=== PATIENT | female | born 1950 | race Caucasian/White ===

== ENCOUNTER 2016-08-22 07:18 | Inpatient (IN) | payer BC ==
[2016-08-17 12:03] LABS: BASOPHILS 0.3 %; BASOPHILS ABSOLUTE 0.03 10/3/uL (0.0-0.16); EOSINOPHILS 4.4 %; HEMATOCRIT 42.5 % (36.0-48.0); IMMATURE GRANULOCYTES 0.8 %; IMMATURE GRANULOCYTES ABSOLUTE 0.07 10/3/uL (0.0-0.11); LYMPHOCYTES 23.3 %; LYMPHOCYTES ABSOLUTE 2.11 10/3/uL (0.67-4.30); MEAN CORPUS HGB CONC 32.9 g/dL (32.0-36.0); MEAN CORPUSCULAR HEMOGLOB 28.6 pg (26.0-34.0); MEAN CORPUSCULAR VOLUME 86.7 fL (80-100); MEAN PLATELET VOLUME 8.8 fL (9.2-13.0); MONOCYTES 6.8 %; MONOCYTES ABSOLUTE 0.62 10/3/uL (0.21-1.20); NEUTROPHILS 64.4 %; NEUTROPHILS ABSOLUTE 5.84 10/3/uL (2.02-8.40); PLATELET COUNT 212 10/3/uL (150-400); RBC DISTRIBUTION WIDTH 16.6 % (12.0-16.0); WHITE BLOOD CELLS 9.1 10/3/uL (4.5-10.5)
[2016-08-17 12:09] LABS: MANUAL DIFF NO %
[2016-08-17 12:10] LABS: PROTIME (NOT ORD) 13.1 SEC (12.0-14.5)
[2016-08-17 12:19] LABS: A/G RATIO 0.8 (0.7-1.9); ALBUMIN 3.4 G/DL (3.5-5.0); ALKALINE PHOSPHATASE 68 U/L (45-117); BUN (BLOOD UREA NITROGEN) 10 MG/DL (6-23); CALCIUM, SERUM 8.8 MG/DL (8.5-10.4); CHLORIDE, SERUM 104 MMOL/L (96-112); CO2 (CARBON DIOXIDE) 30 MMOL/L (24-34); CREATININE 1.32 MG/DL (0.55-1.02); GFR AFRICAN AMERICAN 48 ML/MIN (>=60); GFR NON AFRICAN AMERICAN 41 ML/MIN (>=60); GLOBULIN 4.4 G/DL (2.5-4.1); GLUCOSE, SERUM 136 MG/DL (60-99); POTASSIUM, SERUM 4.4 MMOL/L (3.5-5.3); SGOT(AST) 16 U/L (5-40); SGPT(ALT) 26 U/L (5-65); SODIUM, SERUM 139 MMOL/L (135-148); TOTAL BILIRUBIN 0.3 MG/DL (0-1.2); TOTAL PROTEIN 7.8 G/DL (6.0-8.5)
[2016-08-17 12:46] LABS: WBC (NOT ORDERED) (RFLEX) 0 (0-5)
[2016-08-17 13:53] LABS: ASCORBIC ACID (UR NOT ORDER) NEG (NEG); BILIRUBIN, URINE NEGATIVE (NEG); KETONE, URINE NEGATIVE (NEG); LEUKOCYTE ESTERASE(NOT OR NEG (NEG)
--- NOTE | ~2016-08-22 | OP ---
Record Of Operation [address] [place]. [address] NAME: ANJELICA RAMOS : 48 STATUS : ADM IN PAT#: [id number] AGE: 66 ADM/REG DATE : 08/22/16 MR#: [id number] REPORT SERV DATE: 08/23/16 DICTATED BY: OH PALOMO DATE: 08/22/16 REPORT STATUS : Draft TRANSCRIBED BY: MODL DATE: 08/22/16 DATE OF PROCEDURE: 08/22/2016 PREOPERATIVE DIAGNOSES: 1. Left upper lobe mass. 2. Acute blood loss anemia with transfusion. 3. History of coronary artery disease, status post previous recent PTCA and stenting of the coronary artery. 4. Chronic obstructive pulmonary disease. 5. Chronic kidney disease, stage III. 6. Type 2 htc-ifpicep-pxeytpcqv diabetes mellitus. 7. Hypertension. 8. Gastroesophageal reflux disease. 9. Tobacco abuse. POSTOPERATIVE DIAGNOSES: 1. Left upper lobe mass. 2. Acute blood loss anemia with transfusion. 3. History of coronary artery disease, status post previous recent PTCA and stenting of the coronary artery. 4. Chronic obstructive pulmonary disease. 5. Chronic kidney disease, stage III. 6. Type 2 frs-hwtrqht-aqlrapoge diabetes mellitus. 7. Hypertension. 8. Gastroesophageal reflux disease. 9. Tobacco abuse. 10.Non-small cell lung cancer of the left upper lobe. PROCEDURES PERFORMED: 1. Left thoracotomy with left upper lobectomy. 2. Mediastinal lymph node dissection. 3. Attempted left thoracoscopy. SURGEON: Oh Palomo M.D. ASSISTANTS: Lynn Canales and Manish Castellanos. ANESTHESIA: General. LEAD CARGO MOVER: Dr. Neil. PRIMARY CARE: Dr. Diogo Dent. INDICATIONS: This is a 66-year-old female with a long history of smoking. She has diabetes and is actively smoking. She has also had a possible history of previous [place]. In December she developed cough and went to her primary care physician. She was initially treated with Record Of Operation [address] [place]. [address] NAME: ANJELICA RAMOS : 48 STATUS : ADM IN PAT#: [id number] AGE: 66 ADM/REG DATE : 08/22/16 MR#: [id number] REPORT SERV DATE: 08/23/16 DICTATED BY: OH PALOMO DATE: 08/22/16 REPORT STATUS : Draft TRANSCRIBED BY: MODL DATE: 08/22/16 antibiotics for pneumonia that did not clear. She underwent a CT scan that demonstrated a possible mass in the left upper lobe of the lung. She was referred to Dr. Felix Neil who performed bronchoscopy and a needle biopsy of the left upper lobe that was nondiagnostic. PET scan did not demonstrate any evidence of regional or metastatic spread. In addition, the PET scan did not show significant increase in the uptake in the left upper lobe lung lesion. There was an area on the palatine tonsil and breast seen but not in the mass in the left upper lobe. We were asked to see the patient for evaluation for a left upper lobe lung mass that appeared to be persistent at 3 months. The patient has a long history of smoking and reportedly has quit smoking recently. We saw the patient in our office. We talked about possible resection. She did favor surgical resection. She does have shortness of breath with exertion. Her pulmonary function studies demonstrated FEV1 was 65% of predicted with a DLCO that was low normal. We discussed regional operation with the patient and her . Because of her dyspnea and my concern about chest discomfort, we had requested a stress test. This was performed, I believe, at [place] then back in April. I did not demonstrate any evidence of myocardial perfusion alteration. However because of the patient's consistent and repeated history of chest pain with exertion, I referred it back to her primary computer information systems instructor up in [place], Dr. Mcdowell. There she underwent a cardiac catheterization that demonstrated an 85% to 90% stenosis of the right coronary artery. She had a bare metal stent placed in this. The patient has been on Plavix for 1 month and cleared for surgery. We re-discussed operation with she and her and they wished to proceed. FINDINGS AT OPERATION: 1. There were calcified mediastinal lymph nodes with attachment to pulmonary arteries. This tried to negotiate the lingular artery dissection around one of these lymph nodes, unfortunately resulted in a tearing of the lingular branch of the pulmonary artery to the left upper lobe. This necessitated an urgent conversion to an open thoracotomy for control of the blood vessels and repair of this vessel. 2. The patient did receive 2 units of packed cells during this operation. 3. The tumor was in the posterior segment of the left upper lobe near the fissure between the upper and lower lobes. In fact, I was concerned that there may be some encroachment across the fissure into the left lower lobe. The small portion of the superior segment of the left lower lobe was taken en bloc with the upper lobe and sent for pathologic examination. This returned negative for malignancy in the resected portion of the left lower lobe. 4. The bronchial margin was negative for malignancy. 5. The frozen section of the mass itself demonstrated to be an adenocarcinoma. Chest tubes were placed. The pathologic specimen includes left upper lobe with frozen section as above. 6. Mediastinal lymph nodes, levels 5, 6, 7, 9, 10, and 11. DESCRIPTION OF PROCEDURE: The patient was brought to the operating suite where general anesthesia was induced. Airway was secured with a dual lumen endotracheal tube. Lines secured by Anesthesia. The patient was rolled in a right lateral decubitus position. Left chest prepped with Hibiclens and ChloraPrep and draped with Ioban and sterile sheets. The left lung was deflated by Anesthesia. Record Of Operation [facility] [address] [facility] [place]. [address] NAME: ANJELICA RAMOS : 48 STATUS : ADM IN PAT#: [id number] AGE: 66 ADM/REG DATE : 08/22/16 MR#: [id number] REPORT SERV DATE: 08/23/16 DICTATED BY: OH PALOMO DATE: 08/22/16 REPORT STATUS : Draft TRANSCRIBED BY: MODPetar DATE: 08/22/16 A single 3 to 4 cm VATS incision made along the posterior axillary line and carried through the subcutaneous tissue. The chest wall musculature was incised and divided and the intercostal muscle divided. We entered the chest bluntly and a protractor soft tissue retractor was placed. A second 1 to 2 cm incision made along the anterior axillary line and one intercostal space above this previous incision and we entered the chest bluntly through this site under thoracoscopic visualization. A soft tissue retractor was placed through the largest of the VATS incision. We started the operation with these 2 thoracoscopic port sites. Examination demonstrated no evidence of pleural effusion. There were some adhesions of the left upper lobe to the chest wall while they were taken down. I was not concerned with the chest wall invasion. The fissure between the upper and lower lobe was then completed and we took sometime using cautery to complete the fissure as best as possible. We were able to identify the pulmonary artery branch coursing through the fissure to the basilar segments of the lower lobe. We identified the lingular artery branches to the upper lobe. Attempted circumferential dissection around this area demonstrated enlarged calcified lymph nodes, and I was concerned about the rupture of this vessel and we therefore stopped. We were able to obtain adequate exposure for completing the fissure between the lingula and the left lower lobe up to the point of the pulmonary artery. The lung was then retracted posteriorly and the anterior portion of the hilum was dissected. We identified the superior pulmonary vein and the lingular branch to the vein. Then circumferential dissection around the pulmonary vein was carried out. We ligated and divided this structure using a thoracoscopic stapler and 45 mm vascular staple load. The lung was then retracted inferiorly and the anterior superior portion of the hilum dissected. We identified the phrenic nerve and care was taken to avoid this. Several level 5 lymph nodes were removed and sent for pathologic examination. One of the apical branch of the pulmonary artery did stand out as being free of adhesions and this was circumferentially dissected. It was then ligated and divided with thoracoscopic stapler and the vascular staple load. We then had adequate angles for further dissection around the lingular branch of the pulmonary artery, the upper lobe. We were able to dissect around this vessel and then a vascular staple load was placed across the vessel. During firing of the stapler, we did notice tearing of the branch from the main pulmonary artery. There was a fair amount of blood loss at this point, and control was obtained using 2 grasping atraumatic clamps. Because of the bleeding, I decided to go ahead and elect to perform a thoracotomy. Posterior lateral thoracotomy incision was made and carried through subcutaneous tissue. The latissimus muscle was divided and the serratus muscle was along this fascia and preserved. We entered the chest through the 5th intercostal space and a retractor was placed. We then retracted the lung inferiorly and the superior aspect of the hilum was dissected. We obtained circumferential dissection around the main pulmonary artery and a vascular clamp placed across this structure. Then with blood vessel control, we were able to clear the chest of clot. The patient did receive 2 units of packed red blood cells and had a small drop in blood pressure down to 70 to 90 mmHg that easily rebound with fluid and blood. Record Of Operation [facility] [address] [place]. [address] NAME: ANJELICA RAMOS : 48 STATUS : ADM IN PAT#: [id number] AGE: 66 ADM/REG DATE : 08/22/16 MR#: [id number] REPORT SERV DATE: 08/23/16 DICTATED BY: OH PALOMO DATE: 08/22/16 REPORT STATUS : Draft TRANSCRIBED BY: ALMA DATE: 08/22/16 We continued our dissection and divided the branch of the pulmonary artery going to the posterior segment of the left upper lobe and completed this dividing the pulmonary artery branches to the lingula. Once this was completed, we were able to see where was the tear in the base of the lingular vessel from the main pulmonary trunk was injured. We then repaired this site with interrupted horizontal mattress sutures of 5-0 Prolene. Once this was completed, the atraumatic vascular clamp on the proximal main pulmonary artery was released. There was some bleeding from the base of the posterior segmental artery of the left upper lobe remnant. This was likewise repaired with horizontal mattress sutures of 5-0 Prolene. Hemostasis was obtained. Then irrigated the chest with sterile water and saline. Then, the bronchial stapler was placed across the proximal portion of the left upper lobe bronchus. Test occlusion and ventilation demonstrated good aeration of the left lower lobe. The bronchial stapler was fired and the bronchus divided. Finally the tumor appeared to be cross the fissure between the upper and lower lobes at the superior segment portion of the left lower lobe. Then, using multiple firings of the 60 mm black staple load, we were able to divide this fissure posteriorly taking a small portion of the superior segment of the left lower lobe with the left upper lobe. The mass in the left upper lobe was then brought out of the chest and sent for pathologic examination of the bronchial margin, the stapled margin into the superior segment of the left lower lobe and a frozen section of this mass itself. Frozen section of the mass returned positive for non-small cell lung cancer. The bronchial margin was negative and the stapled margin was likewise negative. Lymph node dissection was then carried out. The left lung was retracted anteriorly and the subcarinal region dissected and level 7 lymph nodes removed and sent for pathologic examination. Along the curvature of the aorta, 2 mediastinal level 6 lymph nodes were removed and sent for pathologic examination. The anterior level 5 lymph nodes have already been removed. The inferior pulmonary ligament was divided up the inferior pulmonary vein and the level 9 lymph nodes were removed and sent for pathologic examination. It should be noted that during dissection, several level 10 and 11 lymph nodes were removed and sent for permanent section. Once the lymph node dissection was completed, the chest was irrigated and hemostasis was obtained. Intercostal nerve block and field block performed under direct visualization using the TAP solution. Then, a chest tube was placed through the most anterior thoracoscopic port site and secured to the skin. The intercostal space was reapproximated with 3 Vicryl sutures. The serratus fascia and latissimus muscle were reapproximated with #1 StrataFix. The subcutaneous tissue was closed with 2-0 StrataFix and skin closed in subcuticular fashion. The Protractor soft tissue retractor was then removed and this incision was closed in layers with absorbable suture and the skin closed in a subcuticular fashion. The patient did tolerate the procedure well. The complications include emergent conversion to left thoracotomy with acute blood loss anemia and transfusion of 2 packed units of blood cells. Record Of Operation [address] [address] NAME: ANJELICA RAMOS : 46 STATUS : ADM IN [facility]#: [id number] AGE: 66 ADM/REG DATE : 08/22/16 MR#: [id number] REPORT SERV DATE: 08/23/16 DICTATED BY: OH PALOMO DATE: 08/22/16 REPORT STATUS : Draft TRANSCRIBED BY: ALMA DATE: 08/22/16 DISPOSITION: The patient was extubated and taken to the recovery room in stable, extubated condition. MARIAH/ALMA Oh Palomo M.D. / [id number] CC: Suleman Tello M.D. Mircea Basaraba, MD
--- NOTE | ~2016-08-22 | CN ---
Consultation Report [facility] [address] [place]. [address] NAME: ANJELICA RAMOS : 46 STATUS : ADM IN PAT#: [id number] AGE: 66 ADM/REG DATE : 08/22/16 MR#: [id number] REPORT SERV DATE: 08/23/16 DICTATED BY: RAFFI WHITEHEAD DATE: 08/23/16 REPORT STATUS : Draft TRANSCRIBED BY: MODPetar DATE: 08/23/16 NEPHROLOGY CONSULTATION DATE OF CONSULTATION: 08/23/2016 CHIEF COMPLAINT: Acute kidney insufficiency. HISTORY OF PRESENT ILLNESS: The patient is a 66-year-old white female with significant past medical history of stage 3 CKD (creatinine 1.15 to 1.35), dft-ukprcso-mpgncawzi diabetes (hemoglobin A1c 5.7), hypertension, ASCVD, status post bare metal stent to RCA, presented for a scheduled procedure for evaluation and management of left upper lobe mass. On 08/22/2016, she underwent a left thoracotomy with left upper lobe lobectomy and mediastinal lymph node dissection. The patient was noted to have systolic blood pressures in 80s to 100s and in addition she had decreasing urine output with the urine output going to less than 20 mL an hour. She did receive Bumex 1 mg IV x1 approximately 12 and responded appropriately. Urine output has been approximately 40 mL an hour over the last three to four hours with the patient on normal saline at 30 mL an hour. Baseline creatinine on presentation on 08/17/2016 and 08/22/2016 was 1.31 to 1.32. Her creatinine is noted to be 1.89 today. Her urinalysis on 08/17/2016 did not show any evidence of microscopic hematuria or proteinuria. I do not have any imaging studies of her kidneys at this time, but the patient notes that she has had CT scans recently in the workup of her left upper lobe mass. She has had a stress test in 04/2016, which was negative. She had a cardiac cath in 06/2016, which showed ejection fraction of 55% and RCA stenosis of 80%, status post bare metal stent. She denies any kidney stones. No NSAID abuse. PAST MEDICAL HISTORY/PAST SURGICAL HISTORY: 1. Left upper lobe mass with nondiagnostic biopsy in the past with 1.5 cm breast nodule. 2. Stage 3 CKD with a creatinine 1.15 to 1.35. 3. COPD. 4. Hiu-smhnbfe-fjagzujjl diabetes. 5. Hypertension. 6. Mixed hyperlipidemia. 7. Acute [place], ASCVD, status post stent to RCA in 06/2016. 8. GERD. 9. Vitamin D deficiency. SOCIAL HISTORY: She is . Remote tobacco. FAMILY MEDICAL HISTORY: No known kidney disease. ALLERGIES: CODEINE. Consultation Report [address] [place]. [address] NAME: ANJELICA RAMOS : 46 STATUS : ADM IN [facility]#: [id number] AGE: 66 ADM/REG DATE : 08/22/16 MR#: [id number] REPORT SERV DATE: 08/23/16 DICTATED BY: RAFFI WHITEHEAD DATE: 08/23/16 REPORT STATUS : Draft TRANSCRIBED BY: ALMA DATE: 08/23/16 CURRENT MEDICATIONS: Include Lopressor and Bumex. REVIEW OF SYSTEMS: Complete review of systems done, negative otherwise as stated in the HPI. PHYSICAL EXAMINATION: VITAL SIGNS: Temperature is 98.1, pulse is 99, blood pressure is in 80s to 100s over 50s. GENERAL: She is obese, in no apparent distress. NEUROLOGIC: She is alert and oriented x3. She moves all four extremities. SKIN: No petechiae or purpura. NECK: No JVP. Trachea midline. No lymphadenopathy. CARDIOVASCULAR: Regular rate and rhythm. RESPIRATORY: Coarse breath sounds. No increased respiratory rate. Left-sided chest tube. ABDOMEN: Soft, nontender, nondistended. Positive bowel sounds. EXTREMITIES: No peripheral edema. LABORATORY DATA: Sodium is 139, potassium 5.2, chloride is 106, bicarb 24, BUN 20, creatinine 1.89, glucose is 191. Albumin 3.4. Magnesium is 1.6. Calcium 7.2. White blood cell count 19.4, hemoglobin is 10.6. ASSESSMENT: 1. Acute kidney insufficiency on stage 3 chronic kidney disease (creatinine 1.15 to 1.35) secondary to prerenal disease versus acute tubular necrosis, status post left upper lobe lobectomy. 2. Postop day #0 for left upper lobe lobectomy secondary to mass. 3. Anemia. 4. Tma-xfqbmfs-tbajjqbwn diabetes. 5. Resolved hypertension with a history of hypertension. PLAN: Discontinue Samuels. Strict I's and O's. A.m. labs. Hold SCHUYLER inhibitor at this time until creatinine trends down. We will make further recommendations based on initial workup. SHEKHAR/ALMA Raffi Whitehead M.D. / [id number] CC: Nguyễn Palomo M.D. UNKNOWN
--- NOTE | ~2016-08-22 | DS ---
Discharge Summary [address] [place]. [address] NAME: ANJELICA RAMOS : 46 STATUS : DIS IN PAT#: [id number] AGE: 66 ADM/REG DATE : 08/22/16 MR#: [id number] REPORT SERV DATE: 09/09/16 DICTATED BY: OH PALOMO DATE: 09/08/16 REPORT STATUS : Draft TRANSCRIBED BY: ALMA DATE: 09/08/16 Data Collection from hospitalization DISCHARGE DIAGNOSES: 1. Left upper lobe mass. 2. Acute blood loss anemia with transfusion. 3. History of coronary artery disease, status post previous recent percutaneous transluminal coronary angioplasty and stenting of the coronary artery. 4. Chronic obstructive pulmonary disease. 5. Stage III chronic kidney disease. 6. Type 2 noninsulin dependent diabetes mellitus. 7. Hypertension. 8. Gastroesophageal reflux disease. 9. Tobacco abuse. 10.Non-small cell lung cancer of the left upper lobe. CONSULTATIONS: Raffi Whitehead M.D. PROCEDURES PERFORMED: Left thoracotomy with left upper lobectomy, mediastinal lymph node dissection, attempted left thoracoscopy on 08/22/2016. PATHOLOGY: Lymph nodes #11 dissection - 3 of 3 fragments positive for adenocarcinoma (3/3). Lymph nodes level 10 dissection - 2 of 2 fragments negative for adenocarcinoma (0/2). Histoplasmosis granuloma with calcification, lung left upper lobe and superior segment left lower lobe lobectomy - invasive adenocarcinoma, 1 of 2 nodes positive for tumor. Lymph nodes region #5 dissection - 1 of 2 fragments positive for adenocarcinoma (1/2). Lymph node #6 biopsy - 1 of 1 fragment negative for adenocarcinoma (0/1). Histoplasmosis granuloma with calcification. Lymph nodes #7 dissection- 15 of 15 fragments negative for adenocarcinoma (0/15). Lymph node #9 biopsy - 1 of 1 fragment negative for adenocarcinoma (0/1). MEDICATIONS: Ventolin two puffs via inhaler every four hours as needed, vitamin C 1000 mg daily, Plavix 75 mg daily, Pristiq 50 mg daily, Advair Diskus one puff via inhaler twice a day, [place] 10/325 one tablet every four hours as needed, Tradjenta 5 mg daily, Zestril 10 mg daily, Glucophage 1000 mg before breakfast, Lopressor 25 mg twice a day, Prilosec 40 mg daily, Zocor 40 mg at bedtime, and Spiriva one puff via inhaler daily. CONDITION AT DISCHARGE: Stable. DISPOSITION: The patient was discharged home to be followed by home health care on a 1500- calorie diabetic diet with activities as instructed. She would follow up with Lencho Whiteside on 08/31/2016 and 09/05/2016. HOSPITAL COURSE: This is a 66-year-old female who has a long history of smoking. She has diabetes and is actively smoking. She has also had a possible history of previous myocardial infarction. In December, she developed a cough and went to see her primary care physician. She was initially treated with antibiotics for pneumonia that did not clear. She underwent a CT scan that demonstrated possible mass in the left upper lobe of the lung. Discharge Summary [address] [place]. [address] NAME: ANJELICA RAMOS : 46 STATUS : DIS IN PAT#: [id number] AGE: 66 ADM/REG DATE : 08/22/16 MR#: [id number] REPORT SERV DATE: 09/09/16 DICTATED BY: OH PALOMO DATE: 09/08/16 REPORT STATUS : Draft TRANSCRIBED BY: ALMA DATE: 09/08/16 She had undergone a bronchoscopy and needle biopsy of the left upper lobe that was nondiagnostic. A PET scan did not demonstrate any evidence of regional or metastatic spread. In addition, the PET scan did not show any significant increase in the uptake in the left upper lobe lung lesion. There was an area on the palatine tonsil and breast seen, but not in the mass of the left upper lobe. We have been asked to see the patient for evaluation of the left upper lobe lung mass that appeared to be persistent at three months. The patient had a long history of smoking and reportedly had stopped smoking recently. Treatment options were discussed and it was elected to proceed with surgical intervention. She was admitted to the hospital at this time for further evaluation and treatment. Upon admission, she was taken to the operating room where she underwent the above-mentioned procedure. She tolerated this well, and there were no complications. On postop day #1, her white count was 19.4. She had good analgesia. Her incisions looked okay. She had some tachycardia and low blood pressure. She was felt to have an acute kidney injury on chronic kidney disease. Beta-naga would be restarted once her blood pressure could tolerate. She was seen by Dr. Raffi Whitehead regarding acute kidney insufficiency. She has a history of stage III chronic kidney disease with creatinine 1.15 to 1.35. She has non-insulin- dependent diabetes. She was noted to have systolic blood pressures in the 80s to 100s, and in addition, she had decreased urine output. She did receive one dose of IV Bumex and responded appropriately. Creatinine was 1.89. She was felt to have acute kidney insufficiency on stage III chronic kidney disease secondary to prerenal disease versus acute tubular necrosis. The Samuels catheter was going to be discontinued. We would hold SCHUYLER inhibitor at this time until creatinine trends down. Further recommendations would be based on initial workup. On 08/24/2016, a bladder scan was performed. Urine residual was 768 mL. There was an air leak of the left pleural chest tube. She had no specific complaints. She was feeling well. She had a few crackles in her lung bases. She had no edema. On 08/25/2016, creatinine level was 1.07. White count was 8.5. Her incisions looked okay. She had trace edema. SCDs were in place. IV fluids and MILLED RICE BROKER were going to be discontinued. Over the next couple of days, she continued to progress. Discharge planning was performed. On 08/29/2016, she had no shortness of breath. She had no new issues. Pathology results were reviewed. Discharge instructions were given. Due to her improved and stable condition, she was discharged home to be followed by home health care with the above-stated instructions. Information collected by: Shital Griffin I submit the above information as my discharge summary. TG/MODL Oh Palomo M.D. / [id number] CC: Oh Palomo M.D. Discharge Summary [address] [address] NAME: ANJELICA RAMOS : 46 STATUS : DIS IN PAT#: [id number] AGE: 66 ADM/REG DATE : 08/22/16 MR#: [id number] REPORT SERV DATE: 09/09/16 DICTATED BY: OH PALOMO DATE: 09/08/16 REPORT STATUS : Draft TRANSCRIBED BY: ALMA DATE: 09/08/16 Raffi Whitehead M.D.
[~2016-08-22 07:18] MED LIST: ADVAIR250 INH; GLUCOPHAGE1000 MG PO; LOP25 PO; PLAVIX PO; PRILOSEC40 MG PO; PRISTIQ50 MG PO; SPIRIVA RESPIMAT INH; TRADJENTA5 MG PO; VENTOLIN HFA INH; VITAMIN D1000 UNI1 PO; ZESTRIL10 MG PO; ZOCOR40 PO
[2016-08-22 14:46] LABS: BASOPHILS 0.1 %; BASOPHILS ABSOLUTE 0.03 10/3/uL (0.0-0.16); EOSINOPHILS 0.1 %; EOSINOPHILS ABSOLUTE 0.03 10/3/uL (0.0-0.53); HEMOGLOBIN 11.6 g/dL (12.0-16.0); IMMATURE GRANULOCYTES 0.8 %; IMMATURE GRANULOCYTES ABSOLUTE 0.16 10/3/uL (0.0-0.11); LYMPHOCYTES 6.6 %; LYMPHOCYTES ABSOLUTE 1.35 10/3/uL (0.67-4.30); MEAN CORPUS HGB CONC 33.7 g/dL (32.0-36.0); MEAN CORPUSCULAR HEMOGLOB 29.2 pg (26.0-34.0); MEAN CORPUSCULAR VOLUME 86.6 fL (80-100); MEAN PLATELET VOLUME 8.9 fL (9.2-13.0); MONOCYTES ABSOLUTE 1.22 10/3/uL (0.21-1.20); NEUTROPHILS 86.4 %; NEUTROPHILS ABSOLUTE 17.53 10/3/uL (2.02-8.40); PLATELET COUNT 162 10/3/uL (150-400); RBC DISTRIBUTION WIDTH 15.6 % (12.0-16.0); RED CELL COUNT 3.97 10/6/uL (4.0-5.6)
[2016-08-22 14:47] LABS: HEMATOCRIT 34.4 % (36.0-48.0); MANUAL DIFF NO %; WHITE BLOOD CELLS 20.3 10/3/uL (4.5-10.5)
[2016-08-22 14:59] LABS: BUN (BLOOD UREA NITROGEN) 11 MG/DL (6-23); CALCIUM, SERUM 8.5 MG/DL (8.5-10.4); CHLORIDE, SERUM 107 MMOL/L (96-112); CREATININE 1.31 MG/DL (0.55-1.02); GFR AFRICAN AMERICAN 48 ML/MIN (>=60); GFR NON AFRICAN AMERICAN 42 ML/MIN (>=60); POTASSIUM, SERUM 4.8 MMOL/L (3.5-5.3); SODIUM, SERUM 141 MMOL/L (135-148)
[2016-08-22 15:00] LABS: CO2 (CARBON DIOXIDE) 25 MMOL/L (24-34); GLUCOSE, SERUM 173 MG/DL (60-99)
[2016-08-23 03:25] LABS: BASOPHILS 0.1 %; BASOPHILS ABSOLUTE 0.02 10/3/uL (0.0-0.16); EOSINOPHILS 0 %; HEMOGLOBIN 10.6 g/dL (12.0-16.0); IMMATURE GRANULOCYTES 1.3 %; IMMATURE GRANULOCYTES ABSOLUTE 0.25 10/3/uL (0.0-0.11); LYMPHOCYTES 7.2 %; LYMPHOCYTES ABSOLUTE 1.39 10/3/uL (0.67-4.30); MEAN CORPUS HGB CONC 34.2 g/dL (32.0-36.0); MEAN CORPUSCULAR HEMOGLOB 29.8 pg (26.0-34.0); MEAN CORPUSCULAR VOLUME 87.1 fL (80-100); MEAN PLATELET VOLUME 8.9 fL (9.2-13.0); MONOCYTES 11.4 %; MONOCYTES ABSOLUTE 2.21 10/3/uL (0.21-1.20); NEUTROPHILS ABSOLUTE 15.52 10/3/uL (2.02-8.40); PLATELET COUNT 177 10/3/uL (150-400); RBC DISTRIBUTION WIDTH 16.1 % (12.0-16.0); RED CELL COUNT 3.56 10/6/uL (4.0-5.6); WHITE BLOOD CELLS 19.4 10/3/uL (4.5-10.5)
[2016-08-23 03:28] LABS: MANUAL DIFF NO %
[2016-08-23 03:38] LABS: BUN (BLOOD UREA NITROGEN) 20 MG/DL (6-23); CALCIUM, SERUM 7.5 MG/DL (8.5-10.4); CHLORIDE, SERUM 106 MMOL/L (96-112); CO2 (CARBON DIOXIDE) 24 MMOL/L (24-34); CREATININE 1.89 MG/DL (0.55-1.02); GFR AFRICAN AMERICAN 31 ML/MIN (>=60); GFR NON AFRICAN AMERICAN 27 ML/MIN (>=60); GLUCOSE, SERUM 191 MG/DL (60-99); POTASSIUM, SERUM 5.2 MMOL/L (3.5-5.3); SODIUM, SERUM 139 MMOL/L (135-148)
[2016-08-24 06:56] LABS: ALBUMIN 3.1 G/DL (3.5-5.0); CHLORIDE, SERUM 99 MMOL/L (96-112); CO2 (CARBON DIOXIDE) 23 MMOL/L (24-34); CREATININE 1.86 MG/DL (0.55-1.02); GFR AFRICAN AMERICAN 32 ML/MIN (>=60); GFR NON AFRICAN AMERICAN 27 ML/MIN (>=60); GLUCOSE, SERUM 160 MG/DL (60-99); PHOSPHORUS, SERUM 3.4 MG/DL (2.5-4.5); POTASSIUM, SERUM 4.6 MMOL/L (3.5-5.3); SODIUM, SERUM 135 MMOL/L (135-148)
[2016-08-24 06:57] LABS: BUN (BLOOD UREA NITROGEN) 24 MG/DL (6-23); CALCIUM, SERUM 8.5 MG/DL (8.5-10.4)
[2016-08-25 05:12] LABS: BASOPHILS 0.1 %; BASOPHILS ABSOLUTE 0.01 10/3/uL (0.0-0.16); EOSINOPHILS 1.9 %; EOSINOPHILS ABSOLUTE 0.16 10/3/uL (0.0-0.53); IMMATURE GRANULOCYTES 0.6 %; IMMATURE GRANULOCYTES ABSOLUTE 0.05 10/3/uL (0.0-0.11); LYMPHOCYTES 14.1 %; LYMPHOCYTES ABSOLUTE 1.19 10/3/uL (0.67-4.30); MEAN CORPUS HGB CONC 33.5 g/dL (32.0-36.0); MEAN CORPUSCULAR HEMOGLOB 28.8 pg (26.0-34.0); MEAN PLATELET VOLUME 8.6 fL (9.2-13.0); MONOCYTES 10.9 %; MONOCYTES ABSOLUTE 0.92 10/3/uL (0.21-1.20); NEUTROPHILS 72.4 %; NEUTROPHILS ABSOLUTE 6.13 10/3/uL (2.02-8.40); PLATELET COUNT 155 10/3/uL (150-400); RBC DISTRIBUTION WIDTH 15.6 % (12.0-16.0); RED CELL COUNT 2.92 10/6/uL (4.0-5.6)
[2016-08-25 05:19] LABS: ALBUMIN 2.6 G/DL (3.5-5.0); CALCIUM, SERUM 8.3 MG/DL (8.5-10.4); CHLORIDE, SERUM 100 MMOL/L (96-112); SODIUM, SERUM 136 MMOL/L (135-148)
[2016-08-25 05:21] LABS: HEMATOCRIT 25.1 % (36.0-48.0); HEMOGLOBIN 8.4 g/dL (12.0-16.0); MANUAL DIFF NO %; WHITE BLOOD CELLS 8.5 10/3/uL (4.5-10.5)
[2016-08-25 05:43] LABS: BUN (BLOOD UREA NITROGEN) 14 MG/DL (6-23); CO2 (CARBON DIOXIDE) 28 MMOL/L (24-34); CREATININE 1.07 MG/DL (0.55-1.02); GFR AFRICAN AMERICAN 62 ML/MIN (>=60); GFR NON AFRICAN AMERICAN 53 ML/MIN (>=60); GLUCOSE, SERUM 122 MG/DL (60-99); PHOSPHORUS, SERUM 1.9 MG/DL (2.5-4.5)
[2016-08-29] MEDS ORDERED: VITC500 PO (10:33)
[2016-08-29] MEDS ORDERED: NORCO1 TAB PO (10:37)
== END 2016-08-29 16:45 | disposition home health service (06) | DRG 164 ==
LOC: SDC/OF 07:18 → PACU 14:36 → CVICU 16:02 → 5NO 08-23 17:42
PROVIDERS: Internal Medicine Nephrology; Nurse Practitioner Family; Thoracic Surgery (Cardiothoracic Vascular Surgery)
PROC: 07B70ZZ Excision of Thorax Lymphatic, Open Approach (ICD-10-PCS; 2016-08-22)
PROC: 02QR0ZZ Repair Left Pulmonary Artery, Open Approach (ICD-10-PCS; 2016-08-22)
PROC: 30233N1 Transfusion of Nonautologous Red Blood Cells into Peripheral Vein, Percutaneous Approach (ICD-10-PCS; 2016-08-22)
PROC: 0BTG0ZZ Resection of Left Upper Lung Lobe, Open Approach (ICD-10-PCS; principal; 2016-08-22 09:15)
DX: C34.12 Malignant neoplasm of upper lobe, left bronchus or lung (principal); D62 Acute posthemorrhagic anemia; N17.9 Acute kidney failure, unspecified; E11.22 Type 2 diabetes mellitus with diabetic chronic kidney disease; J44.9 Chronic obstructive pulmonary disease, unspecified; J95.71 Accidental puncture and laceration of a respiratory system organ or structure during a respiratory system procedure; I25.10 Atherosclerotic heart disease of native coronary artery without angina pectoris; Z95.5 Presence of coronary angioplasty implant and graft; I12.9 Hypertensive chronic kidney disease with stage 1 through stage 4 chronic kidney disease, or unspecified chronic kidney disease; N18.3 Chronic kidney disease, stage 3 (moderate); K21.9 Gastro-esophageal reflux disease without esophagitis; F17.210 Nicotine dependence, cigarettes, uncomplicated; R33.9 Retention of urine, unspecified
CPT/HCPCS: 36415; 71010; 71020; 80048; 80053; 80069; 81001; 82330; 82803; 82947; 82962; 83036; 83735; 84132; 84295; 85014; 85025; 85610; 86850; 86900; 86901; 86920; 87641; 88305; 88307; 88309; 88311; 88312; 88331; 88332; 93005; 94640; A9270-GY; C1751; C1769; J0690; J2250; J2270; J2370; J2405; J2710; J2795; J3010; J3475; P9016; P9045